=== PATIENT | female | born 1950 | race Caucasian/White ===

== ENCOUNTER → 2016-12-06 | Outpatient (CLI) | payer MEDICARE, BC | LOC: KOH-I 14:17 | DX: M54.6 Pain in thoracic spine (principal) | CPT/HCPCS: 72070; 72110 ==

== ENCOUNTER → 2021-01-23 | Outpatient (CLI) | payer MEDICARE ==
[2021-01-23 11:10] LABS: HEMOGLOBIN 13.5 gm/dl (12.3-15.3); RED BLOOD COUNT 4.6 M/UL (4.00-5.10); WHITE BLOOD COUNT 10.8 K/UL (4.5-11.0)
== END ==
LOC: LAB 10:27
PROVIDERS: Family Medicine
DX: R74.8 Abnormal levels of other serum enzymes (principal)
CPT/HCPCS: 82977; 85027

== ENCOUNTER → 2021-05-09 | Outpatient (CLI) | payer MEDICARE | LOC: EXRD 09:03 | DX: M81.0 Age-related osteoporosis without current pathological fracture (principal); Z78.0 Asymptomatic menopausal state; M85.852 Other specified disorders of bone density and structure, left thigh | CPT/HCPCS: 77080 ==

== ENCOUNTER → 2021-08-29 | Outpatient (CLI) | payer MEDICARE ==
[~2021-08-29] MED LIST: ADULT LOW DOSE81 MG PO; ALL DAY ALLERGY10 M2 PO; BUSPAR 10MG10 MG PO; CEPHALEXIN250 MG PO; CRESTOR40 MG PO; CYMBALTA 30 MG30 MG PO; DILTIAZEM PO; JANUVIA100 MG PO; NEXIUM20 MG PO
== END ==
LOC: OPSV2 09:30
DX: Z01.812 Encounter for preprocedural laboratory examination (principal); M65.332 Trigger finger, left middle finger
CPT/HCPCS: 36415; 83036